=== PATIENT | female | born 1985 | race Caucasian/White ===

== ENCOUNTER 2018-08-25 17:37 | Emergency (ER) | payer BC, OTHER ==
--- NOTE | 2018-08-25 17:42 | PDOC ---
History of Present Illness - General Chief Complaint: Pain Stated Complaint: BACK PAIN - History of Present Illness Initial Comments: The pt is a 33F s/p gastric sleeve, s/p vera, s/p R ankle surgery who presents for evaluation of 1 day of acute on chronic back pain. The pt reports intermittent chronic back pain after slipping in the snow that over the last month has worsened and acutely worsened today while taking out the trash. The pain is achy/cramping and will radiate down the back of her legs. She states that it will usually radiate to mid-thigh but today radiates down to her feet. She denies falls or trauma today. She has been taking Tizanidine, Gabapentin, and Tyenol at home for her pain which has been controlling her symptoms. She ran out of her Tizanidine yesterday and has not taken her Gabapentin or Tylenol today. PMH: Depression PSH: as above Meds: Effexor Allergies: Tree nuts LMP 08/12/18 08/25/18 17:44 Past History - Past Medical History Allergies/Adverse Reactions: Allergies Allergy/AdvReac Type Severity Reaction Status Date / Time tree nut Allergy Intermediate Itching Verified 08/25/18 17:39 Home Medications: Ambulatory Orders Gabapentin 600 mg PO TID #21 tablet 08/25/18 Tizanidine HCl 4 mg PO DAILY PRN #7 tablet 08/25/18 Tramadol HCl 50 mg PO TID PRN #12 tablet MDD 3 tabs 08/25/18 Venlafaxine HCl [Effexor -] 110 mg PO DAILY 08/25/18 Review of Systems - Review of Systems Able to Perform ROS?: Yes Comments:: GENERAL/CONSTITUTIONAL: No fever or chills. No weakness HEAD, EYES, EARS, NOSE AND THROAT: No change in vision. No ear pain or discharge. No sore throat CARDIOVASCULAR: No chest pain or shortness of breath RESPIRATORY: Denies cough, hemoptysis GASTROINTESTINAL: No nausea, vomiting, diarrhea or constipation GENITOURINARY: No dysuria, frequency, or change in urination MUSCULOSKELETAL: No joint or muscle swelling or pain. +chronic back pain SKIN: No rash NEUROLOGIC: No headache, vertigo, loss of consciousness, or change in strength/ sensation ENDOCRINE: No increased thirst. No abnormal weight change HEMATOLOGIC/LYMPHATIC: No anemia, easy bleeding, or history of blood clots ALLERGIC/IMMUNOLOGIC: No hives or skin allergy 08/25/18 17:42 Is the patient limited Slovenian proficient: No *Physical Exam - Vital Signs Vital Signs Temp Pulse Resp BP Pulse Ox 98.4 F 76 16 126/74 100 08/25/18 17:38 08/25/18 17:38 08/25/18 17:38 08/25/18 17:38 08/25/18 17:38 08/25/18 20:12 - Physical Exam Comments: GENERAL: Awake, alert, and oriented to person/place/time, in no acute distress HEAD: No signs of trauma, normocephalic, atraumatic EYES: PERRLA, EOMI, sclera anicteric, conjunctiva clear ENT: Hearing grossly normal, nares patent, oropharynx clear without exudates. Moist mucosa LUNGS: No distress, speaks in full sentences, clear to auscultation bilaterally HEART: Regular rate and rhythm, normal S1 and S2, no murmurs appreciated, peripheral pulses normal and equal bilaterally ABDOMEN: Soft, nontender, normoactive bowel sounds. No guarding, no rebound BACK: No C/T spine TTP; Mild L spine TTP which is reported as chronic EXTREMITIES: Normal inspection, Normal range of motion, no edema. No clubbing or cyanosis NEUROLOGICAL: Cranial nerves II through XII grossly intact. Normal speech, normal gait, no focal sensorimotor deficits SKIN: Warm, Dry 08/25/18 17:42 Medical Decision Making - Medical Decision Making The pt is a 33F w/ a history of depression who presents for evaluation of acute on chronic back pain w/ b/l sciatica ED Course No indication for Emergent Imaging at this time Will give home pain regimen Will give Tramadol 50mg PO once for exacerbation of pain Rx for pt of Tizanidine and Gabapentin and Tramadol Pt knows to call PCP tomorrow for f/u appointment 08/25/18 18:23 Pt feels improved Ambulating in ED Discharge instructions and return precautions given Pt in agreement and verbalized understanding Dispo: home *DC/Admit/Observation/Transfer Diagnosis at time of Disposition: Back pain Qualifiers: Back pain location: low back pain Chronicity: chronic Back pain laterality: bilateral Sciatica presence: with sciatica Sciatica laterality: bilateral sciatica Qualified Code(s): M54.42 - Lumbago with sciatica, left side - Discharge Dispostion Disposition: HOME Condition at time of disposition: Stable Decision to Admit order: No - Prescriptions Prescriptions: Gabapentin 600 mg PO TID #21 tablet Tizanidine HCl 4 mg PO DAILY PRN #7 tablet PRN Reason: Muscle Spasms Tramadol HCl 50 mg PO TID PRN #12 tablet MDD 3 tabs PRN Reason: Pain - Referrals Referrals: Carlos Hou [Primary Care Provider] - - Patient Instructions Printed Discharge Instructions: DI for Low Back Pain Additional Instructions: You were seen in the Emergency Department for evaluation of back pain. Your were given your home regimen and Tramadol for pain. A prescription for Tizanidine, Gabapentin, and Tramadol was sent to the pharmacy that you specified. Take your home regimen as usual and the Tramadol if you have breakthrough pain despite that regimen. Review the handout provided at discharge. Avoid heavy lifting at this time until cleared by your primary care provider. Call your primary care provider tomorrow for a follow up appointment. Return to the Emergency Department if you develop fevers/chills, chest pain, trouble breathing, changes in strength/sensation, difficulty with urination, incontinence, blood in your urine or stool, worsening symptoms, or any new/ concerning symptoms. - Post Discharge Activity
[2018-08-25 17:52] VITALS: BP 126/74; PULSE 76; TEMP 98.4; BMI 36.3
[2018-08-25] MEDS ORDERED: GABAPENTIN 300 MG CAPSULE (FP) PO ONE (18:07)
[2018-08-25] MEDS ORDERED: ACETAMINOPHEN 500 MG TABLET (FP) PO ONE (18:07)
[2018-08-25] MEDS ORDERED: TIZANIDINE HCL 4 MG TABLET PO ONE (18:07)
[2018-08-25] MEDS ORDERED: ACETAMINOPHEN 500 MG TABLET (FP) ONE (18:12)
[2018-08-25] MEDS ORDERED: GABAPENTIN 300 MG CAPSULE (FP) ONE (18:12)
[2018-08-25] MEDS ORDERED: CYCLOBENZAPRINE HCL 10 MG TABLET (FP) PO ONE (18:12)
[2018-08-25] MEDS ORDERED: CYCLOBENZAPRINE HCL 10 MG TABLET (FP) ONE (18:13)
[2018-08-25] MEDS ORDERED: traMADol HCL 50 MG TABLET PO ONE (18:19)
[2018-08-25] MEDS ORDERED: traMADol HCL 50 MG TABLET ONE (18:29)
--- NOTE | 2018-08-25 18:34 | PDOC ---
Attending Attestation - Resident Resident Name: Jason Willard - ED Attending Attestation I have performed the following: I have examined & evaluated the patient, The case was reviewed & discussed with the resident, I agree w/resident's findings & plan - HPI HPI: 08/25/18 18:29 33y/o F h/o gastric sleeve, 1 year chronic atraumatic back pain 2/2 lumbar disc herniation seen on MRI, maintained on gabapentin, tizanidine, and tylenol for the last month, now p/w exacerbation of low back pain today. Pt was taking garbage bags out, felt a sudden spasm in her low back radiating down lateral legs to her feet b/l, no bowel/bladder issues, no motor/sensory deficit. ran out of her tizanidine yesterday so was only able to take gabapentin without relief, presents for eval. no f/c. no fall. - Physicial Exam PE: 08/25/18 18:31 vss ambulating steadily, nad no midline spine ttp 5/5 flex/extend b/l hips/knees/ankles/toes. nvi distally. no rash - Medical Decision Making 08/25/18 18:32 33y/o F with acute on chronic back pain, likely exacerbation of disc disease with radiculopathy. motor/sensory/vascular intact without other red flags on history/physical exam. also in setting of running out of her meds. dose baseline meds plus tramadol given acute exacerbation. 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
== END 2018-08-25 19:24 | disposition home or self-care (01) ==
LOC: FER 17:37
DX: M54.42 Lumbago with sciatica, left side (principal); F32.9 Major depressive disorder, single episode, unspecified; G89.29 Other chronic pain
CPT/HCPCS: 99282-25